=== PATIENT | female | born 1985 | race Hispanic/Latino ===

== ENCOUNTER 2018-09-08 23:55 | Emergency (ER) | payer BC ==
[2018-09-09 00:08] VITALS: RESP 18; O2SAT 99
--- NOTE | 2018-09-09 00:32 | ED PDOC ---
Arrival/HPI - General Chief Complaint: Abdominal Pain Time Seen by Provider: 09/09/18 00:23 Historian: Patient - History of Present Illness Narrative History of Present Illness (Text): 09/09/18 00:29 33 year old female, with no significant past medical history, presents to the emergency department complaining of pelvic pain that began 1 hour prior to arrival. Patient denies any radiation. She reports she usually has painful cr amping pains and heavy bleeding during her menstrual period which is expecting tomorrow. Patient denies any fever, chills, chest pain, shortness of breath, nausea, vomiting, diarrhea, urinary symptoms, back pain, neck pain, headache, dizziness, or any other complaints. Time/Duration: Prior to Arrival, 1 hour Symptom Onset: Sudden Symptom Course: Unchanged Activities at Onset: Light Context: Home Past Medical History - Provider Review Nursing Documentation Reviewed: Yes - Psychiatric Hx Substance Use: No - Anesthesia Hx Anesthesia: No Hx Anesthesia Reactions: No Hx Malignant Hyperthermia: No Family/Social History - Physician Review Nursing Documentation Reviewed: Yes Family/Social History: No Known Family HX Smoking Status: Light Smoker < 10 Cigarettes Daily Hx Alcohol Use: Yes Frequency of alcohol use: Socially Hx Substance Use: No Allergies/Home Meds Allergies/Adverse Reactions: Allergies No Known Allergies Allergy (Verified 09/09/18 00:08) Review of Systems - Physician Review All systems were reviewed & negative as marked: Yes - Review of Systems Constitutional: absent: Fevers, Other (Chills) Respiratory: absent: SOB Cardiovascular: absent: Chest Pain Gastrointestinal: Abdominal Pain. absent: Diarrhea, Nausea Genitourinary Female: absent: Dysuria, Frequency, Hematuria Musculoskeletal: absent: Back Pain, Neck Pain Neurological: absent: Headache, Dizziness Physical Exam - Physical Exam Narrative Physical Exam (Text): Gen: VS reviewed, alert, well developed, well nourished, nontoxic, mild distress. ENT: normal pharynx. Eye: EOMI, PERRL. Neck: no JVD, supple, no adenopathy. CV: regular rate, regular rhythm, no rubs, no murmur, no gallops, S1, S2, pulses equal and strong. Pulm: no distress, clear to auscultation, no wheeze, no rhonchi, breath sounds equal, no rales. Abd: Diffuse pelvic tenderness. no guarding, no rebound, no rigidity, normal bowel sounds. Ext: no edema. Skin: good color, no rash, no cyanosis. Psych: responds appropriately to questions, normal affect. Neuro: oriented x 3, CN2-12 intact grossly, motor intact, sensation intact. Vital Signs Reviewed: Yes Vital Signs Temp Pulse Resp BP Pulse Ox 09/09/18 00:08 98.6 F 73 18 114/56 L 99 Temperature: Afebrile Blood Pressure: Normal Pulse: Regular Respiratory Rate: Normal Appearance: Positive for: Non-Toxic Medical Decision Making ED Course and Treatment: 09/09/18 00:29 Impression: 33 year old female presents complaining of pelvic pain that began 1 hour prior to arrival. PE shows diffuse pelvic tenderness. Plan: -- Labs -- Toradol -- POC Urine Test -- Urinalysis w/ micro -- Transvaginal US -- Reassess and disposition Progress Notes: 09/09/18 01:44 patient feels better and ready to go home. patient seen for pelvic pain and US reveals a hemorraghic cyst. pain improved, stable for discharge. - Lab Interpretations I have reviewed the lab results: Yes - RAD Interpretation Narrative RAD Interpretations (Text): Ultrasound of the pelvis. Electronically signed on Sep 09, 2018 1:15:48 AM EST by: Little Melendrez M.D Impression: Left ovarian hemorrhagic cyst/endometrioma without ovarian torsion. Managing Manager: Radiologist - Scribe Statement The provider has reviewed the documentation as recorded by the Savanahibmary Harris Provider Scribe Attestation: All medical record entries made by the Scribe were at my direction and personally dictated by me. I have reviewed the chart and agree that the record accurately reflects my personal performance of the history, physical exam, medical decision making, and the department course for this patient. I have also personally directed, reviewed, and agree with the discharge instructions and disposition. Disposition/Present on Arrival - Present on Arrival Any Indicators Present on Arrival: No History of DVT/PE: No History of Uncontrolled Diabetes: No Urinary Catheter: No History of Decub. Ulcer: No History Surgical Site Infection Following: None - Disposition Have Diagnosis and Disposition been Completed?: Yes Diagnosis: Haemorrhagic cyst Disposition: HOME/ ROUTINE Disposition Time: 01:45 Patient Plan: Discharge Condition: STABLE Discharge Instructions (ExitCare): Ovarian Cysts Additional Instructions: return for any new or worsening symptoms. 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 Forms: [facility] (Serbian), WORK NOTE
[2018-09-09 00:46] LABS: BASO # 0.03 K/mm3 (0.0-2.0); BASO % 0.6 % (0.0-3.0); EOS # 0.3 (0.0-0.7); EOS % 5.9 % (1.5-5.0); HEMOGLOBIN 10.7 g/dL (12.0-16.0); LYMPH # 1.5 (1.2-3.4); LYMPH % 29.4 % (22.0-35.0); MEAN CELL VOLUME 83.5 fl (80.0-105.0); MEAN CORPUSCULAR HEMOGLOBIN 26.7 pg (25.0-35.0); MEAN CORPUSCULAR HGB CONC 31.9 g/dl (31.0-37.0); MEAN PLATELET VOLUME 8.9 fl (7.0-11.0); MONO # 0.4 (0.1-0.6); MONO % 7.1 % (1.0-6.0); RBC 4.01 10^6/uL (3.5-6.1); RED CELL DISTRIBUTION WIDTH 14.3 % (11.5-14.5); URINE BILIRUBIN NEGATIVE (NEGATIVE); URINE BLOOD TRACE-INTACT (NEGATIVE); URINE GLUCOSE (UA) NEGATIVE (NEGATIVE); URINE LEUKOCYTE ESTERASE NEGATIVE Leu/uL (NEGATIVE); URINE PROTEIN NEGATIVE mg/dL (<30 mg/dL); URINE UROBILINOGEN 0.2 E.U./dL (<1 E.U./dL); WHITE BLOOD COUNT 4.9 10^3/uL (4.5-11.0)
[2018-09-09 00:50] LABS: URINE APPEARANCE CLEAR (CLEAR); URINE COLOR YELLOW (YELLOW)
[2018-09-09 00:56] LABS: ALB/GLOB RATIO 1.3 (1.1-1.8); ALBUMIN 4.2 g/dL (3.0-4.8); AST/SGOT 17 U/L (14-36); BLOOD UREA NITROGEN 7 mg/dL (7-21); CALCIUM 8.6 mg/dL (8.4-10.5); GFR NON-AFRICAN AMERICAN > 60
[2018-09-09 01:01] LABS: ALT/SGPT < 6 U/L (7-56)
[2018-09-09 01:02] LABS: URINE EPITHELIAL CELLS 0 - 2 /hpf (0-5); URINE WBC 0 - 2 /hpf (0-6)
[2018-09-09 01:03] LABS: URINE BACTERIA FEW /hpf
[2018-09-09 01:11] LABS: BARBITURATES, UR NEGATIVE (NEGATIVE); BENZODIAZEPINES, UR NEGATIVE (NEGATIVE); OPIATES, UR NEGATIVE (NEGATIVE); PHENCYCLIDINE, UR NEGATIVE (NEGATIVE)
[2018-09-09 01:59] VITALS: BP 110/62; PULSE 76; TEMP 98.2
--- NOTE | 2018-09-09 08:38 | US ---
Date of service: 09/09/2018 HISTORY: pain, torsion COMPARISON: None available. TECHNIQUE: Grayscale imaging was performed. FINDINGS: UTERUS: Measures 9.5 x 4.7 x 6.8 cm. Anteverted, normal in size and appearance. No fibroid or other mass lesion seen. ENDOMETRIUM: Measures 8.1 mm in diameter. Unremarkable. CERVIX: No cervical abnormality identified. RIGHT OVARY: Measures 2.5 x 2.6 x 2.0 cm. No solid mass. Normal flow. There is a 3.1 x 2.0 x 2.6 cm simple cyst with irregular margins. LEFT OVARY: Measures 6.6 x 5.3 x 6.3 cm. No solid mass. Normal flow. There is a 5.5 x 3.7 x 4.8 cm complicated/septated cyst. FREE FLUID: There is moderate amount of free fluid in the pelvis. OTHER FINDINGS: None. IMPRESSION: 1. 5.5 x 3.7 x 4.8 cm complicated/septated cyst in the left ovary. No evidence for torsion. 2. 3.1 x 2.0 x 2.6 cm simple cyst with irregular margins in the right ovary. No evidence for torsion. 3. Moderate amount of free fluid in the pelvis, likely related to partial rupture of right ovarian cyst which demonstrates irregular margins. A preliminary report was provided by [facility].
== END 2018-09-09 01:59 | disposition home or self-care (01) ==
LOC: ED 23:55
DX: N83.202 Unspecified ovarian cyst, left side (principal); F17.210 Nicotine dependence, cigarettes, uncomplicated
CPT/HCPCS: 76830; 80053; 81001; 81025; 85025; 96374; 99283; G0480; J1885